=== PATIENT | male | born 1985 | race African-American/Black ===

== ENCOUNTER 2017-01-11 12:22 | Emergency (ER) | payer BC ==
[2017-01-11 12:42] VITALS: BP 124/64
--- NOTE | 2017-01-11 13:09 | EDM.PDOC ---
ED HPI GENERAL MEDICAL PROBLEM - General Chief Complaint: General Stated Complaint: CUT Time Seen by Provider: 01/11/17 13:00 Source of Information: Reports: Patient History Limitations: Reports: No limitations - History of Present Illness INITIAL COMMENTS - FREE TEXT/NARRATIVE: History of present illness: [31-year-old male presents with complaints of torn toe nail on left foot second toe. Patient having clipping nails and managed to fracture the nail plate at an angle tearing and a matrix.] Review of systems: As per history of present illness and below otherwise all systems reviewed and negative. Past medical history: As per history of present illness and as reviewed below otherwise noncontributory. Surgical history: As per history of present illness and as reviewed below otherwise noncontributory. Social history: No reported history of drug or alcohol abuse. Family history: As per history of present illness and as reviewed below otherwise noncontributory. Physical exam: HEENT: Atraumatic, normocephalic, pupils reactive, negative for conjunctival pallor or scleral icterus, mucous membranes moist, throat clear, neck supple, nontender, trachea midline. Lungs: Clear to auscultation, breath sounds equal bilaterally, chest nontender. Heart: S1S2, regular, negative for clicks, rubs, or JVD. Abdomen: Soft, nondistended, nontender. Negative for masses or hepatosplenomegaly. Negative for costovertebral tenderness. Pelvis: Stable nontender. Genitourinary: Deferred. Rectal: Deferred. Extremities: Atraumatic, negative for cords or calf pain. Neurovascular unremarkable. Neuro: Awake, alert, oriented. Cranial nerves II through XII unremarkable. Cerebellum unremarkable. Motor and sensory unremarkable throughout. Exam nonfocal. Benign save for her second toe on left foot with toenail plate fractured otherwise negative Diagnostics: [] Therapeutics: [] Impression: [Toenail trauma] Plan: [dress , supportive care] Definitive disposition and diagnosis as appropriate pending reevaluation and review of above. left toe Pain Score (Numeric/FACES): 4 - Related Data Allergies Allergy/AdvReac Type Severity Reaction Status Date / Time No Known Allergies Allergy Verified 01/11/17 12:38 Home Meds: Home Meds . [No Known Home Meds] 01/11/17 [History] Past Medical History - Past Health History Medical/Surgical History: Denies Medical/Surgical History Social & Family History - Tobacco Use Smoking Status *Q: Never Smoker Second Hand Smoke Exposure: No - Caffeine Use Caffeine Use: Reports: Other - Recreational Drug Use Recreational Drug Use: No ED ROS GENERAL - Review of Systems Review Of Systems: See Below (See history of present illness) ED EXAM, GENERAL - Physical Exam Exam: See Below (See history of present illness) Course - Vital Signs Last Recorded V/S: Last Vital Signs Temp 36.9 C 01/11/17 12:39 Pulse 72 01/11/17 12:39 Resp 18 01/11/17 12:39 BP 124/64 01/11/17 12:39 Pulse Ox 98 01/11/17 12:39 Departure - Departure Time of Disposition: 13:10 Disposition: Home, Self-Care 01 Condition: good Clinical Impression: Contusion of toe with damage to nail Qualifiers: Encounter type: initial encounter Toe: lesser toe Laterality: left Qualified Code(s): S90.222A - Contusion of left lesser toe(s) with damage to nail, initial encounter Referrals: PCP,Maurice [Primary Care Provider] - Santhosh Correa PA [Physician Escrow Manager] - Additional Instructions: The following information is given to patients seen in the emergency department who are being discharged to home. This information is to outline your options for follow-up care. We provide all patients seen in our emergency department with a follow-up referral. The need for follow-up, as well as the timing and circumstances, are variable depending upon the specifics of your emergency department visit. If you don't have a primary care physician on staff, we will provide you with a referral. We always advise you to contact your personal physician following an emergency department visit to inform them of the circumstance of the visit and for follow-up with them and/or the need for any referrals to a consulting specialist. The emergency department will also refer you to a specialist when appropriate. This referral assures that you have the opportunity for follow-up care with a specialist. All of these measure are taken in an effort to provide you with optimal care, which includes your follow-up. Under all circumstances we always encourage you to contact your private physician who remains a resource for coordinating your care. When calling for follow-up care, please make the office aware that this follow-up is from your recent emergency room visit. If for any reason you are refused follow-up, please contact the [facility] Emergency Department at and asked to speak to the emergency department charge nurse. Followup the primary care 1-2 days Return to ED as needed as discussed
== END 2017-01-11 13:19 | disposition home or self-care (01) ==
LOC: MW.ED 12:22
DX: S90.222A Contusion of left lesser toe(s) with damage to nail, initial encounter (principal); X58.XXXA Exposure to other specified factors, initial encounter
CPT/HCPCS: 99282

== ENCOUNTER 2018-01-09 16:08 | Emergency (ER) | payer BC ==
[2018-01-09] MEDS ORDERED: Sodium Chloride 0.9% 1,000 ML IV ONE (16:13)
[2018-01-09] MEDS ORDERED: cloNIDine 0.1 MG Tab PO ONE (16:13)
[2018-01-09] MEDS ORDERED: Aspirin 81 MG Tab.Chew PO ONE (16:14)
--- NOTE | 2018-01-09 16:14 | EDM.PDOC ---
ED HPI GENERAL MEDICAL PROBLEM - General Chief Complaint: Chest Pain Stated Complaint: PT HAS CHEST AND BACK PAIN Time Seen by Provider: 01/09/18 16:11 Source of Information: Reports: Patient History Limitations: Reports: No Limitations - History of Present Illness INITIAL COMMENTS - FREE TEXT/NARRATIVE: HISTORY AND PHYSICAL: History of present illness: Patient is a 32-year-old male who is complaining of midsternal chest pain that goes to his back 3 days. He states that the pain has been intermittent but does not associate it with any particular activity. Denies any fever, chills, shortness of breath, abdominal pain, nausea, vomiting, diarrhea/constipation. He denies any diaphoresis or pain radiating into his shoulder or neck. He has no personal history of heart disease. No history of smoking Review of systems: As per history of present illness and below otherwise all systems reviewed and negative. Past medical history: As per history of present illness and as reviewed below otherwise noncontributory. Surgical history: As per history of present illness and as reviewed below otherwise noncontributory. Social history: No reported history of drug or alcohol abuse. Family history: As per history of present illness and as reviewed below otherwise noncontributory. Physical exam: General: Well-developed and well-nourished 32-year-old -[place] male. Alert and oriented. Nontoxic appearing and in no acute distress. HEENT: Atraumatic, normocephalic, pupils equal and reactive bilaterally, negative for conjunctival pallor or scleral icterus, mucous membranes moist, throat clear, neck supple, nontender, trachea midline. No drooling or trismus noted. No meningeal signs Lungs: Clear to auscultation, breath sounds equal bilaterally, chest nontender. Heart: S1S2, regular rate and rhythm without overt murmur Abdomen: Soft, nondistended, nontender. Negative for masses or hepatosplenomegaly. Negative for costovertebral tenderness. Pelvis: Stable nontender. Genitourinary: Deferred. Rectal: Deferred. Skin: Intact, warm, dry. No lesions or rashes noted. Extremities: Atraumatic, negative for cords or calf pain. Neurovascular unremarkable. Neuro: Awake, alert, oriented. Cranial nerves II through XII unremarkable. Cerebellum unremarkable. Motor and sensory unremarkable throughout. Exam nonfocal. Notes: Patient denies any history of hypertension although today's reading is elevated. Will continue to monitor. Blood pressure has since gone down. Reviewed the diagnostic findings with patient. Diagnostics: CBC, CMP, troponin, EKG, 2 view chest x-ray Therapeutics: IV fluid, aspirin, clonidine, GI cocktail Impression: Chest pain, nonspecific Plan: 1. Your blood pressure was elevated, please take your medication as prescribed. 2. It is important that you follow-up and establish care with a primary care provider. Please see them within the next week. Return to the ED as needed and as discussed. Definitive disposition and diagnosis as appropriate pending reevaluation and review of above. chest Pain Score (Numeric/FACES): 5 - Related Data Allergies Allergy/AdvReac Type Severity Reaction Status Date / Time No Known Allergies Allergy Verified 01/09/18 16:08 Home Meds: Home Meds . [No Known Home Meds] 01/11/17 [History] Past Medical History - Past Health History Medical/Surgical History: Denies Medical/Surgical History Social & Family History - Family History Family Medical History: Noncontributory - Tobacco Use Smoking Status *Q: Never Smoker Second Hand Smoke Exposure: No - Caffeine Use Caffeine Use: Reports: Coffee - Recreational Drug Use Recreational Drug Use: No ED ROS GENERAL - Review of Systems Review Of Systems: ROS reveals no pertinent complaints other than HPI. ED EXAM, GENERAL - Physical Exam Exam: See Below (SEe dictation) Course - Vital Signs Last Recorded V/S: Last Vital Signs Temp 97.8 F 01/09/18 16:09 Pulse 77 01/09/18 17:15 Resp 18 01/09/18 16:09 BP 123/73 01/09/18 17:15 Pulse Ox 97 01/09/18 16:09 - Orders/Labs/Meds Labs: Laboratory Tests 01/09/18 01/09/18 Range/Units 16:25 16:25 WBC 3.82 L (4.0-11.0) K/uL RBC 5.95 H (4.50-5.90) M/uL Hgb 16.4 (13.0-17.0) g/dL Hct 45.4 (38.0-50.0) % MCV 76.3 L (80.0-98.0) fL MCH 27.6 (27.0-32.0) pg MCHC 36.1 (31.0-37.0) g/dL RDW Std Deviation 36.7 (28.0-62.0) fl RDW Coeff of Caden 13 (11.0-15.0) % Plt Count 150 (150-400) K/uL MPV 10.10 (7.40-12.00) fL Neut % (Auto) 42.2 L (48.0-80.0) % Lymph % (Auto) 44.5 H (16.0-40.0) % Blanco % (Auto) 6.5 (0.0-15.0) % Eos % (Auto) 6.5 (0.0-7.0) % Baso % (Auto) 0.3 (0.0-1.5) % Neut # (Auto) 1.6 (1.4-5.7) K/uL Lymph # (Auto) 1.7 (0.6-2.4) K/uL Blanco # (Auto) 0.3 (0.0-0.8) K/uL Eos # (Auto) 0.3 (0.0-0.7) K/uL Baso # (Auto) 0.0 (0.0-0.1) K/uL Nucleated RBC % 0.0 /100WBC Nucleated RBCs # 0 K/uL Sodium 143 (136-148) mmol/L Potassium 3.6 (3.5-5.1) mmol/L Chloride 106 (98-107) mmol/L Carbon Dioxide 24.4 (21.0-32.0) mmol/L BUN 13 (7.0-18.0) mg/dL Creatinine 0.8 (0.8-1.3) mg/dL Est Cr Clr Drug Dosing TNP Estimated GFR (MDRD) > 60.0 ml/min Glucose 144 H (74-106) mg/dL Calcium 9.2 (8.5-10.1) mg/dL Total Bilirubin 0.8 (0.2-1.0) mg/dL AST 27 (15-37) IU/L ALT 58 (14-63) IU/L Alkaline Phosphatase 88 (46-116) U/L Troponin I < 0.050 (0.000-0.056) ng/mL Total Protein 7.3 (6.4-8.2) g/dL Albumin 4.1 (3.4-5.0) g/dL Globulin 3.2 (2.0-3.5) g/dL Albumin/Globulin Ratio 1.3 (1.3-2.8) Meds: Medications Discontinued Medications Generic Name Dose Route Start Last Admin Trade Name Elif PRN Reason Stop Dose Admin Aspirin 324 mg 01/09/18 16:14 01/09/18 16:33 Aspirin PO 01/09/18 16:15 324 mg ONETIME ONE Administration Clonidine HCl 0.1 mg 01/09/18 16:13 01/09/18 16:31 Catapres PO 01/09/18 16:14 0.1 mg ONETIME ONE Administration Sodium Chloride 1,000 mls @ 999 mls/hr 01/09/18 16:13 01/09/18 16:33 Normal Saline IV 01/09/18 17:13 999 mls/hr STAT ONE Administration Departure - Departure Time of Disposition: 17:36 Disposition: Home, Self-Care 01 Clinical Impression: Nonspecific chest pain Instructions: Nonspecific Chest Pain Referrals: PCP,None [Primary Care Provider] - Forms: ED Department Discharge Additional Instructions: The following information is given to patients seen in the emergency department who are being discharged to home. This information is to outline your options for follow-up care. We provide all patients seen in our emergency department with a follow-up referral. The need for follow-up, as well as the timing and circumstances, are variable depending upon the specifics of your emergency department visit. If you don't have a primary care physician on staff, we will provide you with a referral. We always advise you to contact your personal physician following an emergency department visit to inform them of the circumstance of the visit and for follow-up with them and/or the need for any referrals to a consulting specialist. The emergency department will also refer you to a specialist when appropriate. This referral assures that you have the opportunity for follow-up care with a specialist. All of these measure are taken in an effort to provide you with optimal care, which includes your follow-up. Under all circumstances we always encourage you to contact your private physician who remains a resource for coordinating your care. When calling for follow-up care, please make the office aware that this follow-up is from your recent emergency room visit. If for any reason you are refused follow-up, please contact the [facility] Emergency Department at and asked to speak to the emergency department charge nurse. [facility] [address] [place] [id number] 1. Your blood pressure was elevated, please take your medication as prescribed. 2. It is important that you follow-up and establish care with a primary care provider. Please see them within the next week. Return to the ED as needed and as discussed.
[2018-01-09 17:06] LABS: CHLORIDE,CL 106 mmol/L (98-107); SODIUM,NA 143 mmol/L (136-148)
--- NOTE | 2018-01-10 09:39 | CR ---
EXAM DATE: 01/09/18 PATIENT'S AGE: 32 Patient: OC [employer]WOR[employer] Facility: [place], [place] Site . Site : 1985 Study: XRay Chest [id number]/9/2018 4:50:31 PM Ordering Physician: Doctor Huerta Final Report: HISTORY: Chest pain x3 days. FINDINGS: PA and lateral chest radiographs are compared with 15 December 2015. The cardiac silhouette is normal. Pulmonary vasculature is free of cephalization. No consolidation, pleural effusion or pneumothorax is seen. Bony structures are normal. IMPRESSION: No acute cardiopulmonary disease. Dictated by Lenora Mosley MD @ 01/09/2018 4:59:08 PM Dictated by: Lenora Mosley MD @ 01/09/2018 16:59:16 (Electronic Signature) Report Signed by Proxy. [facility]
== END 2018-01-09 17:51 | disposition home or self-care (01) ==
LOC: MW.ED 16:08
DX: R07.89 Other chest pain (principal)
CPT/HCPCS: 36415; 71046; 80053; 84484; 85025; 93005; 96360; 99285; A9270; J7040; 99283

== ENCOUNTER 2023-10-02 09:50 | Emergency (ER) | payer BC ==
[2023-10-02] MEDS ORDERED: Ketorolac 30 MG/ML SDV IVPUSH ONE (10:12)
[2023-10-02] MEDS ORDERED: Ondansetron 4 MG/2 ML SDV IVPUSH ONE (10:12)
[2023-10-02] MEDS ORDERED: Sodium Chloride 0.9% 1,000 ML IV ONE (10:14)
[2023-10-02 10:20] LABS: BASOPHILS ABSOLUTE AUTO 0.01 K/uL (0.00-0.20); BASOPHILS PERCENT AUTO 0.3 % (0.0-1.0); EOSINOPHILS ABSOLUTE AUTO 0.06 K/uL (0.00-0.45); HEMATOCRIT 44.8 % (42.0-52.0); HEMOGLOBIN 15.9 g/dL (14.0-18.0); LYMPHOCYTES ABSOLUTE AUTO 0.66 K/uL (1.00-4.80); LYMPHOCYTES PERCENT AUTO 22.4 % (24.0-44.0); MEAN CORPUSCULAR HEMOGLOBIN 26.6 pg (28.0-32.0); MEAN CORPUSCULAR HGB CONC 35.5 g/dL (32.0-36.0); MEAN CORPUSCULAR VOLUME 74.9 fL (83.0-99.0); MONOCYTES ABSOLUTE AUTO 0.32 K/uL (0.00-0.80); MONOCYTES PERCENT AUTO 10.8 % (0.0-8.0); NEUTROPHILS PERCENT AUTO 64.5 % (41.0-71.0); PLATELET COUNT,PLT 128 K/uL (150-400); RED BLOOD CELL COUNT 5.98 M/uL (4.52-5.90); WHITE BLOOD CELL COUNT,WBC 2.95 K/uL (3.9-11.3)
[2023-10-02 10:31] LABS: A/G RATIO 1.1 (0.9-1.6); ALBUMIN 3.9 g/dL (3.4-5.0); BILIRUBIN TOTAL 1.4 mg/dL (0.2-1.0); CREATININE 1.3 mg/dL (0.8-1.3); EST CRCL DRUG DOSING (CG) 69.53 mL/min; POTASSIUM,K 3.4 mmol/L (3.5-5.1); PROTEIN TOTAL,TP 7.5 g/dL (6.4-8.2)
[2023-10-02] MEDS ORDERED: amLODIPine 5 MG Tab PO ONE (10:35)
[2023-10-02] MEDS ORDERED: Aspirin 81 MG Tab.Chew PO ONE (10:36)
[2023-10-02] MEDS ORDERED: Nitroglycerin 0.4 MG Tab.SL SL PRN (10:36)
[2023-10-02 11:38] LABS: CORONAVIRUS COVID-19 NAA NEGATIVE (NEGATIVE); INFLUENZA A NAA POSITIVE (NEGATIVE); INFLUENZA B NAA NEGATIVE (NEGATIVE); RESPIRATORY SYNCYTIAL VIR NAA NEGATIVE (NEGATIVE)
[2023-10-02] MEDS ORDERED: Lisinopril 10 MG Tab PO ONE (11:44)
[2023-10-02 11:56] LABS: APPEARANCE,URINE CLEAR; BILIRUBIN,URINE NEGATIVE (NEGATIVE); COLOR,URINE YELLOW; GLUCOSE,URINE 500 mg/dL (NEGATIVE); KETONES,URINE NEGATIVE (NEGATIVE); LEUKOCYTE ESTERASE,URINE NEGATIVE (NEGATIVE); NITRITE,URINE NEGATIVE (NEGATIVE); OCCULT BLOOD,URINE NEGATIVE (NEGATIVE); PROTEIN,URINE NEGATIVE (NEGATIVE)
== END 2023-10-02 12:31 | disposition home or self-care (01) ==
LOC: MW.ED 09:50
DX: I10 Essential (primary) hypertension (principal); R07.9 Chest pain, unspecified; J10.1 Influenza due to other identified influenza virus with other respiratory manifestations; E11.9 Type 2 diabetes mellitus without complications; Z91.148 Patient's other noncompliance with medication regimen for other reason; Z20.822 Contact with and (suspected) exposure to COVID-19
CPT/HCPCS: 0241U; 36415; 71045; 80053; 81003; 84484; 85025; 93005; 99285; A9270; J7030

== ENCOUNTER 2024-03-19 09:44 | Emergency (ER) | payer SELFPAY ==
[2024-03-19] MEDS: diphenhydrAMINE 50 MG/ML SDV IVPUSH ONE (10:18)
[2024-03-19] MEDS: Sodium Chloride 0.9% 1,000 ML IV ONE (10:18)
[2024-03-19] MEDS: Sodium Chloride 0.9% 2.5 ML Syringe FLUSH PRN (10:19)
[2024-03-19] MEDS: Metoclopramide 10 MG/2 ML SDV IVPUSH ONE (10:19)
[2024-03-19] MEDS: Sodium Chloride 0.9% 10 ML Syringe FLUSH PRN (10:19)
[2024-03-19 10:25] LABS: BASOPHILS ABSOLUTE AUTO 0.02 K/uL (0.00-0.20); BASOPHILS PERCENT AUTO 0.5 % (0.0-1.0); EOSINOPHILS ABSOLUTE AUTO 0.27 K/uL (0.00-0.45); EOSINOPHILS PERCENT AUTO 7.2 % (0.0-6.0); HEMATOCRIT 46.6 % (42.0-52.0); HEMOGLOBIN 16.2 g/dL (14.0-18.0); IMMATURE GRAN ABSOLUTE AUTO 0.01 K/uL (0.00-0.05); IMMATURE GRAN PERCENT AUTO 0.3 % (0.0-0.4); LYMPHOCYTES ABSOLUTE AUTO 1.46 K/uL (1.00-4.80); LYMPHOCYTES PERCENT AUTO 38.8 % (24.0-44.0); MEAN CORPUSCULAR HEMOGLOBIN 26.4 pg (28.0-32.0); MEAN CORPUSCULAR HGB CONC 34.8 g/dL (32.0-36.0); MEAN PLATELET VOLUME 9.7 fL (9.4-12.4); MONOCYTES ABSOLUTE AUTO 0.29 K/uL (0.00-0.80); MONOCYTES PERCENT AUTO 7.7 % (0.0-8.0); NEUTROPHILS ABSOLUTE AUTO 1.71 K/uL (1.80-7.70); NEUTROPHILS PERCENT AUTO 45.5 % (41.0-71.0); PLATELET COUNT,PLT 188 K/uL (150-400); RED BLOOD CELL COUNT 6.13 M/uL (4.52-5.90); WHITE BLOOD CELL COUNT,WBC 3.76 K/uL (3.9-11.3)
[2024-03-19 10:43] LABS: HEMOGLOBIN A1C 6.6 %
[2024-03-19 10:51] LABS: PTT,PARTIAL THROMBOPLSTIN TIME 30.5 SEC (23.9-30.7)
[2024-03-19 11:00] LABS: A/G RATIO 1.1 (0.9-1.6); BILIRUBIN TOTAL 1.1 mg/dL (0.2-1.0); CALCIUM 8.8 mg/dL (8.5-10.1); CARBON DIOXIDE,CO2 26.9 mmol/L (21.0-32.0); EST CRCL DRUG DOSING (CG) 90.38 mL/min; MAGNESIUM 1.9 mg/dL (1.8-2.4); PROTEIN TOTAL,TP 7.7 g/dL (6.4-8.2)
[2024-03-19] MEDS: Iopamidol 755 MG/ML 500 ML Multipack Bottle IVPUSH STA (11:56)
[2024-03-19] MEDS: Potassium Chloride 10% 20 MEQ/15 ML Soln 15 ML UD Cup PO ONE (12:53)
[2024-03-19] MEDS: Lisinopril 10 MG Tab PO ONE (12:54)
== END 2024-03-19 13:53 | disposition home or self-care (01) ==
LOC: MW.ED 09:44
DX: K64.4 Residual hemorrhoidal skin tags (principal); E87.6 Hypokalemia; K92.1 Melena; I10 Essential (primary) hypertension; E11.9 Type 2 diabetes mellitus without complications; Z79.899 Other long term (current) drug therapy; Z75.8 Other problems related to medical facilities and other health care
CPT/HCPCS: 36415; 70450; 74177; 80053; 83036; 83690; 83735; 84484; 85025; 85610; 85730; 93005; 96361; 96374; 96375; 99284; A9270; J1200; J2765; J3490; J7030; Q9967; 93010

== ENCOUNTER 2024-05-04 06:17 | Day surgery (SDC) | payer MEDICAID, OTHER ==
[2024-05-04] MEDS: Lactated Ringers 1,000 ML IV SCH (06:50)
[2024-05-04] MEDS ORDERED: Lidocaine 2% 5 ML SDV ONE (07:31)
[2024-05-04] MEDS ORDERED: Propofol 200 MG/20 ML SDV ONE ×3 (07:32→07:58)
[2024-05-04] MEDS ORDERED: Lactated Ringers 1,000 ML IV SCH (08:30)
== END 2024-05-04 09:10 | disposition home or self-care (01) ==
LOC: MW.SDS 06:17
PROVIDERS: ATTEND Surgery
DX: K62.5 Hemorrhage of anus and rectum (principal); I10 Essential (primary) hypertension; E11.9 Type 2 diabetes mellitus without complications; Z79.84 Long term (current) use of oral hypoglycemic drugs; Z79.899 Other long term (current) drug therapy
CPT/HCPCS: 45378; J2704; J7120; J3490